=== PATIENT | female | born 1970 | race Caucasian/White ===

== ENCOUNTER 2022-09-24 10:58 | Emergency (ER) | payer SELFPAY ==
[~2022-09-24] VITALS: Ht 167.6 cm; Wt 76.0 kg
[2022-09-24 11:12] VITALS: BP 124/82
[2022-09-24] MEDS ORDERED: GABA-290 MT (12:27)
[2022-09-24] MEDS ORDERED: VILA40TA MT (12:27)
== END 2022-09-24 12:47 | disposition home or self-care (01) ==
LOC: ER 11:02
DX: R00.0 Tachycardia, unspecified (principal); Z76.0 Encounter for issue of repeat prescription; F41.9 Anxiety disorder, unspecified; F32.9 Major depressive disorder, single episode, unspecified; E11.9 Type 2 diabetes mellitus without complications; Z90.710 Acquired absence of both cervix and uterus
CPT/HCPCS: 93005; 99283